=== PATIENT | female | born 1975 | race Caucasian/White ===

== ENCOUNTER 2022-06-24 11:17 | Emergency (ER) | payer BC, SELFPAY ==
--- NOTE | 2022-06-24 11:25 | PC.NURSE ---
EDP at intubation w/ 7.5 tube, 26 at lip w/ positive color change, equal chest rise and fall.
--- NOTE | 2022-06-24 11:39 | ED.CPR ---
HPI - CPR General Chief Complaint: Cardiac Arrest/CPR Stated Complaint: witnessed cardiac arrest Source: RN notes reviewed History of Present Illness HPI narrative: Patient presents emergency department from home via EMS for cardiac arrest. History is per EMS the patient had gotten up and gone to the bathroom and come back and been noted to be in some distress per the family he had then gone to another room and heard the patient collapsed EMS was called when EMS arrived the patient was unconscious and CPR was started at 1037. The patient remained in PEA throughout their time there was one questionable run of V. fib that was shocked once with no change the patient had been intubated with an eye gel and CPR been performed until arrival at the emergency department. Patient's only complaint is she has been dealing with sciatica over the past several months Related Data Allergies Allergy/AdvReac Type Severity Reaction Status Date / Time No Known Allergies Allergy Mild Verified 07/10/08 17:31 Review of Systems Review of Systems: ROS unobtainable: Yes unobtainable due to endotracheal tube PMFSH Comments Unable to obtain a past medical or social history secondary to cardiopulmonary arrest Exam Narrative: CAPPEARANCE: Lying in bed unresponsive to verbal and painful stimuli HEENT: Normocephalic, atraumatic, orotracheal tube in place Eyes: Pulses fixed and dilated RESPIRATORY: No spontaneous breath sounds auscultated. Equal breath sounds with bag ventilation CARDIOVASCULAR: No spontaneous heart rate auscultated ABDOMINAL: Soft, nondistended MUSCULOSKELETAl: Distal cyanosis with no spontaneous motion of extremities NEURO: Unresponsive to verbal and painful stimuli SKIN:: Cool and dry Course Course Emergency Course: Patient had CPR performed throughout stay in ED patient never regained a pulse she remained in PEA with the majority being asystole with only an occasional PAC patient's was brought back to the room Patient's time of was 1132 Patient's and family updated on patient's status Called and discussed with DAVID Cornejo for Dr. Pineda patient's PCP and she is unsure if Dr. Pineda will sign the certificate Procedures Intubation Intubation #1: sedative: none Laryngoscope: fiber optic video scope Tube Size (cm): 7.5 Method of Intubation: orotracheal Number of Attempts: 1 Tube Secured Depth (cm): 26 Tube Secured Location: lips Tube Placement Confirmation: visualized tube passing through cords, equal breath sounds bilaterally, no breath sounds over epigastrium and confirmation by capnometry Patient Tolerated Procedure: well Intubation Complications: none Discharge Plan Discharge Clinical Impression: Cardiopulmonary arrest Patient Disposition: Condition: Follow-up/Referrals: PHYSICIAN NOT ON STAFF,NONSTAFF [Primary Care Provider] -
--- NOTE | 2022-06-24 11:46 | PC.NURSE ---
Customer Service Representative Sarah notified @ [phone] Bryant notified @ [phone]
[2022-06-24 14:08] LABS: Glucose Point of Care 185 mg/dl (65-105)
--- NOTE | 2022-06-24 16:18 | PC.NURSE ---
Pt placed in body bag per manager assessment request at this time.
== END 2022-06-24 16:41 | disposition expired ==
PROVIDERS: Emergency Provider Emergency Medicine
DX: I46.9 Cardiac arrest, cause unspecified (principal)
CPT/HCPCS: 31500; 82948; 92950; 99285; J0171; J3475